=== PATIENT | male | born 1965 | race Caucasian/White ===

== ENCOUNTER 2018-12-19 07:56 | Outpatient (CLI) | payer MEDICARE, MEDICAID, SELFPAY ==
[2018-12-19 08:44] LABS: HGB 15.7 g/dL (13.5-17.5); Mean Corp. HGB Concentration 34.1 g/dL (32.0-36.0); Mean Corpuscular Hemoglobin 32.2 pg (27.0-33.0); Mean Corpuscular Volume 94.3 fL (80-95); Mean Platelet Volume 9.1 fL (8.0-11.0); Platelet Count 182 x1000/uL (130-400); RBC 4.88 m/cumm (4.50-6.00); RBC Distribution Width 12.7 % (11.8-14.1); White Blood Cell Count 7.29 k/cumm (4.4-10.8)
[2018-12-19 09:39] LABS: ALT 23 U/L (12-78); AST 19 U/L (15-37); Albumin 3.7 g/dL (3.4-5.0); Alkaline Phosphatase 99 U/L (46-116); BUN 17 mg/dL (7-18); Bilirubin, Total 0.7 mg/dL (0.2-1.0); Calcium 9.1 mg/dL (8.5-10.1); Chloride 107 mmol/L (98-107); Cholesterol 189 mg/dL (50-200); Estimated GFR 52.62 (mL/min/1.73m2); Glucose 120 mg/dL (70-100); HDL Cholesterol 35 mg/dL (40-60); LDL CHOLESTEROL 115 mg/dL (<100); Potassium 4.2 mmol/L (3.5-5.1); Sodium 144 mmol/L (136-145); Total Protein 6.8 g/dL (6.4-8.2); Triglyceride 241 mg/dL (30-150)
[2018-12-20 10:37] LABS: Hemoglobin A1C 5.2 % (4.5-6.2)
== END 2018-12-19 08:16 ==
PROVIDERS: PCP Nurse Practitioner; Visit Provider Nurse Practitioner
DX: F31.9 Bipolar disorder, unspecified (principal); G40.909 Epilepsy, unspecified, not intractable, without status epilepticus; R32 Unspecified urinary incontinence; R73.01 Impaired fasting glucose; Z79.899 Other long term (current) drug therapy
CPT/HCPCS: 36415; 80053; 80061; 83721; 85027; 83036

== ENCOUNTER → 2021-11-10 08:55 | Outpatient (BNVA) | payer MEDICARE, MEDICAID, SELFPAY | PROVIDERS: PCP Nurse Practitioner; Referring Provider Nurse Practitioner; Visit Provider Nurse Practitioner Gerontology | DX: R69 Illness, unspecified (principal) ==

== ENCOUNTER 2021-11-10 13:32 | Outpatient (CLI) | payer MEDICARE, MEDICAID, SELFPAY ==
--- NOTE | 2021-11-10 | DI.US_ITS ---
Exam(s) US RENAL EXAM: US RENAL CLINICAL HISTORY: ? HYDRO D/T RETENTION, URINARY RETENTION, BENIGN PROSTATIC HYPERPLASIA TECHNIQUE: Ultrasound of both kidneys performed using standard protocol. COMPARISON: None FINDINGS: Patient was apparently not able to be fully cooperative for this study. RIGHT KIDNEY: Measures 9.5 cm in length. There is decreased corticomedullary differentiation. No obvious cortical thinning nor cortical scarring. There are few small cysts ranging up to 2.5 cm. No intrarenal calculi nor hydronephrosis. LEFT KIDNEY: Measures 10.8 cm in length. There are also a few small cysts on this side measuring up to 2 cm. Als o decreased corticomedullary differentiation on this side. Normal cortical thickness. No intrarenal calculi nor hydronephrosis. URINARY BLADDER: Prevoid volume is 356 cc Postvoid volume is 332 cc No evidence of bladder mass nor diverticuli. Ureterovesical jets: Both identified and appear symmetrical IMPRESSION: 1. Although both kidneys exhibit normal size, both kidneys exhibit decreased corticomedullary differ entiation indicating element of medical renal disease, this despite absence of cortical thinning. 2. Bilateral renal cysts are noted ranging up to 2.5 cm. No ominous solid lesions seen in either ki dney. 3. No renal calculi nor hydronephrosis noted. 4. Prominent amount of postvoid residual urine within the urinary bladder, as described above. Pros dwyer size appears to be upper normal. DATA REPOSITORY:
== END 2021-11-10 13:52 ==
PROVIDERS: PCP Nurse Practitioner; Visit Provider Nurse Practitioner Gerontology
DX: R33.8 Other retention of urine (principal); R32 Unspecified urinary incontinence; N40.1 Benign prostatic hyperplasia with lower urinary tract symptoms; N28.89 Other specified disorders of kidney and ureter; N28.1 Cyst of kidney, acquired
CPT/HCPCS: 76770; 99205; G2212

== ENCOUNTER 2021-11-10 18:24 | Outpatient (REF) | payer MEDICARE, MEDICAID, SELFPAY ==
[2021-11-10 13:29] LABS: BUN 21 mg/dL (7-18); CREATININE 1.7 mg/dL (0.70-1.30)
[2021-11-10 22:58] LABS: PSA, Screening 1.6 ng/mL (0.0-3.5)
== END 2021-11-10 18:25 | disposition home or self-care (01) ==
LOC: LBN 18:24
PROVIDERS: PCP Nurse Practitioner; Visit Provider Nurse Practitioner Gerontology
DX: N40.1 Benign prostatic hyperplasia with lower urinary tract symptoms (principal); R32 Unspecified urinary incontinence; R33.8 Other retention of urine; Z12.5 Encounter for screening for malignant neoplasm of prostate
CPT/HCPCS: 84153; 84520; 82565

== ENCOUNTER → 2021-11-25 13:30 | Outpatient (BNVA) | payer MEDICARE, MEDICAID, SELFPAY | PROVIDERS: PCP Nurse Practitioner; Referring Provider Nurse Practitioner; Visit Provider Nurse Practitioner Gerontology | DX: N40.1 Benign prostatic hyperplasia with lower urinary tract symptoms (principal); R33.8 Other retention of urine; R32 Unspecified urinary incontinence | CPT/HCPCS: 51798; 99213 ==

== ENCOUNTER → 2022-02-03 14:44 | Outpatient (BNVA) | payer MEDICARE, MEDICAID, SELFPAY | PROVIDERS: PCP Nurse Practitioner; Referring Provider Nurse Practitioner; Visit Provider Nurse Practitioner Gerontology | DX: R32 Unspecified urinary incontinence (principal); N40.1 Benign prostatic hyperplasia with lower urinary tract symptoms; R33.8 Other retention of urine | CPT/HCPCS: 51798; 99214 ==

== ENCOUNTER → 2022-08-04 13:59 | Outpatient (BNVA) | payer MEDICARE, MEDICAID, SELFPAY | PROVIDERS: PCP Nurse Practitioner; Referring Provider Nurse Practitioner; Visit Provider Nurse Practitioner Gerontology | DX: N40.1 Benign prostatic hyperplasia with lower urinary tract symptoms (principal); R33.8 Other retention of urine; R32 Unspecified urinary incontinence | CPT/HCPCS: 99214 ==

== ENCOUNTER 2022-10-07 00:49 | Outpatient (CLI) | payer MEDICARE, MEDICAID, SELFPAY ==
--- NOTE | 2022-10-07 07:02 | DI.US_ITS ---
Exam(s) US RENAL EXAM: US RENAL CLINICAL HISTORY: Increasing URINARY RETENTION,URINARY INCONTINENCE,R32,R33.8,N40.1. TECHNIQUE: Dubon scale, color and spectral Doppler were used. COMPARISON: US US RENAL from 11/10/2021 FINDINGS: Renal size in cm: Right: 11. Left: 11.1. Echogenicity: There is loss of the cortical medullary differentiation again seen. Hydronephrosis: No. Cyst or mass: There are bilateral small renal cysts present. No solid renal masses are seen. Nephrolithiasis: No. Other findings: None. Bladder:Normal. Ureteral jets: Right: Visualized and unremarkable. Left: Visualized and unremarkable. Prevoid vol:753 cc Postvoid vol:427 cc Prostate: 19 cc Renal color flow: Symmetric and within normal limits. IMPRESSION: 1. Loss of the normal cortical medullary differentiation in both kidneys which can be seen with medic al renal disease. 2. Large postvoid urinary bladder volume. 3. Bilateral renal cysts. DATA REPOSITORY:
== END 2022-10-07 01:09 ==
LOC: DI 00:49
PROVIDERS: PCP Nurse Practitioner; Visit Provider Nurse Practitioner Gerontology
DX: R33.8 Other retention of urine (principal); N40.1 Benign prostatic hyperplasia with lower urinary tract symptoms; N28.1 Cyst of kidney, acquired
CPT/HCPCS: 76770

== ENCOUNTER → 2022-10-12 12:57 | Outpatient (BNVA) | payer MEDICARE, MEDICAID, SELFPAY | PROVIDERS: PCP Nurse Practitioner; Referring Provider Nurse Practitioner; Visit Provider Nurse Practitioner Gerontology | DX: N40.1 Benign prostatic hyperplasia with lower urinary tract symptoms (principal); R33.8 Other retention of urine; R32 Unspecified urinary incontinence | CPT/HCPCS: 99442 ==

== ENCOUNTER → 2023-03-20 12:53 | Outpatient (BNVA) | payer MEDICARE, MEDICAID, SELFPAY | PROVIDERS: PCP Nurse Practitioner; Referring Provider Nurse Practitioner; Visit Provider Nurse Practitioner Gerontology | DX: R39.89 Other symptoms and signs involving the genitourinary system (principal); R33.8 Other retention of urine; N40.1 Benign prostatic hyperplasia with lower urinary tract symptoms | CPT/HCPCS: 36415; 51798; 99213 ==

== ENCOUNTER 2023-03-20 15:42 | Outpatient (REF) | payer MEDICARE, MEDICAID, SELFPAY ==
[2023-03-20 16:47] LABS: BUN 19 mg/dL (7-18); CREATININE 1.9 mg/dL (0.70-1.30); Estimated GFR 40.13 (mL/min/1.73m2)
== END 2023-03-20 15:43 | disposition home or self-care (01) ==
LOC: LBN 15:42
PROVIDERS: PCP Nurse Practitioner; Visit Provider Nurse Practitioner Gerontology
DX: N40.1 Benign prostatic hyperplasia with lower urinary tract symptoms (principal); R33.8 Other retention of urine
CPT/HCPCS: 84520; 82565

== ENCOUNTER → 2023-05-24 01:21 | Outpatient (CLI) | payer MEDICARE, MEDICAID, SELFPAY ==
--- NOTE | 2023-05-24 07:15 | DI.MRI_ITS ---
Exam(s) MR ABDOMEN WO/W EXAM: MR ABDOMEN WO/W CLINICAL HISTORY: Nodule on R kidney,splenic masses,f/u abnl ct,n28.89,r16.1 TECHNIQUE: Multiplanar multisequence MRI of the Abdomen was performed. CONTRAST MATERIAL: IV Contrast: 20 mL of Dotarem contrast administered. COMPARISON: CT CT ABD/PELVIS W/ CONTR NO PO from 04/23/2023 FINDINGS: The examination is limited due to patient motion artifact. Liver: Unremarkable. Pancreas: Unremarkable. Gallbladder and Bile Ducts: Cholelithiasis. No biliary ductal dilatation. Adrenals: Unremarkable. Kidneys: There are numerous bilateral renal cysts. The majority of which are less than 3 mm in size. The largest is in the left kidney and measures 2.9 x 2.3 cm. There is a T1 hyperintense 1 cm left cortical lesion in the medial aspect. (Series [id number], image 30). This likely reflects a hemorrhagic cyst. No enhancing lesions are seen in the kidneys. Spleen: The spleen is enlarged measuring 14 cm. There is no evidence of a splenic lesion. There is homogeneous enhancement of the spleen noted. Bowel: Unremarkable. There is no evidence of bowel obstruction or bowel wall thickening. Aorta: Unremarkable. Soft Tissues: Unremarkable. Bone: Unremarkable. Lymph Nodes: Unremarkable. IMPRESSION: 1. Multiple bilateral renal cysts. 2. No suspicious or enhancing renal cysts are seen at this time. 3. Splenomegaly. No evidence of a splenic lesion. 4. Cholelithiasis. No biliary ductal dilatation. DATA REPOSITORY:
[2023-05-24 08:49] LABS: Abs Immature Grans 0.03 10^3/uL (0.0-0.06); Absolute Basophil Count 0.07 10^3/uL (0.0-0.2); Absolute Lymphocyte Count 1.31 10^3/uL (1.2-3.4); Absolute Neutrophil Count 4.41 10^3/uL (1.2-6.7); Basophils % 1.1; HGB 15.4 g/dL (13.5-17.5); Immature Grans % 0.5; Lymphocytes % 19.8; MCHC 34.2 % (32.0-36.0); MCV 94 fL (80-95); MPV 8.9 fL (8.0-11.0); Neutrophils % 66.6; Platelet Count 174 10^3/uL (130-400); RBC 4.81 10^6/uL (4.36-5.78); RDW 12.4 % (11.8-14.1); RDW-SD 42.5 fL; WBC 6.62 10^3/uL (4.4-10.8)
[2023-05-24 09:04] LABS: ALT 40 U/L (16-63); AST 21 U/L (15-37); Albumin 3.8 g/dL (3.4-5.0); Alkaline Phosphatase 110 U/L (46-116); Anion Gap 8.1 mmol/L (3-11); BUN 21 mg/dL (7-18); Bilirubin, Total 0.6 mg/dL (0.2-1.0); CO2 26.9 mmol/L (21.0-32.0); CREATININE 1.9 mg/dL (0.70-1.30); Calcium 9.5 mg/dL (8.5-10.1); Chloride 107 mmol/L (98-107); Estimated GFR 40.13 (mL/min/1.73m2); Glucose 137 mg/dL (74-106); Potassium 4.3 mmol/L (3.5-5.1); Sodium 142 mmol/L (136-145); Total Protein 7.6 g/dL (6.4-8.2)
[2023-05-24] MEDS: Normal Saline - Diluent 50 ML VIAL 25 ML IJ (09:11)
[2023-05-24] MEDS: Gadoterate meglumine 20 ML VIAL IVP (09:11)
[2023-05-25 09:36] LABS: HIV-1/2 Ag & Ab Screen Negative (Negative)
[2023-05-25 09:48] LABS: Hepatitis C Ab w Rflx HCV PCR Negative (Negative)
== END ==
PROVIDERS: PCP Nurse Practitioner; Visit Provider Family Medicine
DX: N28.1 Cyst of kidney, acquired (principal); R16.1 Splenomegaly, not elsewhere classified; K80.80 Other cholelithiasis without obstruction
CPT/HCPCS: 74183; 80053; 86803; 87389; 82565; 85025

== ENCOUNTER → 2023-09-19 15:25 | Outpatient (BNVA) | payer MEDICARE, MEDICAID, SELFPAY | PROVIDERS: PCP Nurse Practitioner; Referring Provider Nurse Practitioner; Visit Provider Nurse Practitioner Gerontology | DX: N40.1 Benign prostatic hyperplasia with lower urinary tract symptoms (principal); R33.8 Other retention of urine; R32 Unspecified urinary incontinence | CPT/HCPCS: 51798; 99214 ==

== ENCOUNTER → 2025-05-19 10:23 | Outpatient (BNVA) | payer MEDICARE, MEDICAID, SELFPAY | PROVIDERS: Visit Provider Nurse Practitioner Gerontology | DX: N40.1 Benign prostatic hyperplasia with lower urinary tract symptoms (principal); R33.8 Other retention of urine; R32 Unspecified urinary incontinence; R39.9 Unspecified symptoms and signs involving the genitourinary system | CPT/HCPCS: 99214; 51798 ==